=== PATIENT | male | born 1955 | race Caucasian/White ===

== ENCOUNTER 2018-03-28 10:07 | Inpatient (IN) ==
[2018-03-28 11:32] LABS: Basophils # 0.1 10*3/uL (0.0-0.2); Basophils % 1.3 % (0.0-0.8); Eosinophils # 0.2 10*3/uL (0.0-0.87); Eosinophils % 2.6 % (0.00-10.9); Hematocrit 41.4 VOL% (42.0-52.0); Hemoglobin 14.1 GM/DL (14.0-18.0); Immature Granulocytes % 0.3 %; Immature Granulocytes Absolute 0.02 #; Lymphocytes # 1.8 10*3/uL (1.4-4.0); Lymphocytes % 26.5 % (21.2-54.2); Mean Corpuscular HGB Conc 34.1 GM/DL (32-36); Mean Corpuscular Hemoglobin 33 PG (27-34); Mean Corpuscular Volume 97.6 FL (87-102); Mean Platelet Volume 9.6 FL (9.6-12.0); Monocytes # 0.7 10*3/uL (0.11-0.8); Monocytes % 10.6 % (1.7-12.7); Neutrophils % 58.7 % (38.7-73.9); Platelet Count 177 T/CUMM (130-400); Red Blood Count 4.24 MC/CUMM (3.8-5.5); White Blood Count 6.9 T/CUMM (4-12)
[2018-03-28 11:49] LABS: Albumin 3.5 G/DL (3.4-5.0); Bilirubin,Total 0.5 MG/DL (0.2-1.0); Calcium 9.8 MG/DL (8.5-10.1); Osmolality,Calculated 281.7 MOS/KG (273-304); Potassium 4.8 MMOL/L (3.5-5.1); Total Protein 7.4 G/DL (6.4-8.3)
[2018-03-28] MEDS ORDERED: VANCOMYCIN INJ 1,500 MG in SODIUM CHLORIDE 0.9% 500 ML IV ONE (12:00)
[2018-03-28] MEDS ORDERED: ACETAMINOPHEN 325 MG TABLET PO PRN (13:10)
[2018-03-28] MEDS ORDERED: ONDANSETRON 4 MG/2 ML VIAL IV PRN (13:10)
[2018-03-28] MEDS ORDERED: GLUCAGON 1 MG VIAL IM PRN (15:56)
[2018-03-28] MEDS ORDERED: DEXTROSE 50% 25 GM/50 ML VIAL IV PRN (15:56)
[2018-03-28] MEDS: INSULIN LISPRO 100 UNIT/ML SUBCUT SCH ×2 (17:11→21:44)
[2018-03-28 19:35] LABS: INR 1.4; PT Patient Result 14.2 SECS
[2018-03-28] MEDS ORDERED: WARFARIN 5 MG TABLET PO SCH (21:00)
[2018-03-28] MEDS: SIMVASTATIN 80 MG TABLET PO SCH (21:43)
[2018-03-29] MEDS: VANCOMYCIN INJ 1,500 MG in SODIUM CHLORIDE 0.9% 500 ML IV SCH ×2 (01:02→14:10)
[2018-03-29 06:03] LABS: Calcium 9.6 MG/DL (8.5-10.1); Osmolality,Calculated 282.3 MOS/KG (273-304); Potassium 3.9 MMOL/L (3.5-5.1)
[2018-03-29] MEDS: INSULIN LISPRO 100 UNIT/ML SUBCUT SCH ×4 (09:00→20:43)
[2018-03-29] MEDS: PANTOPRAZOLE 40 MG TABLET PO SCH (10:24)
[2018-03-29] MEDS ORDERED: MAGNESIUM SULF RIDER 2 GM in PREMIX 1 EACH IV PRN (12:30)
[2018-03-29] MEDS ORDERED: MAGNESIUM SULF RIDER 4 GM in PREMIX 1 EACH IV PRN (12:30)
[2018-03-29] MEDS: LISINOPRIL/HCTZ 20-25 MG TABLET PO SCH (16:33)
[2018-03-29] MEDS: PENTOXIFYLLINE 400 MG TABLET PO SCH ×2 (16:33→20:42)
[2018-03-29] MEDS ORDERED: WARFARIN 7.5 MG TABLET PO SCH (18:00)
[2018-03-29] MEDS: SIMVASTATIN 80 MG TABLET PO SCH (20:42)
[2018-03-29] MEDS ORDERED: INSULIN NPH/REGULAR 70/30 100 UNIT/ML SUBCUT SCH (21:00)
[2018-03-30] MEDS: VANCOMYCIN INJ 1,500 MG in SODIUM CHLORIDE 0.9% 500 ML IV SCH (01:14)
[2018-03-30 05:17] LABS: INR 1.4; PT Patient Result 14.1 SECS
[2018-03-30 05:52] LABS: Calcium 8.5 MG/DL (8.5-10.1); Osmolality,Calculated 281.3 MOS/KG (273-304); Potassium 3.8 MMOL/L (3.5-5.1)
[2018-03-30] MEDS: INSULIN LISPRO 100 UNIT/ML SUBCUT SCH ×2 (08:09→12:30)
[2018-03-30] MEDS ORDERED: LISINOPRIL/HCTZ 20-25 MG TABLET PO SCH (09:00)
[2018-03-30] MEDS ORDERED: INSULIN NPH/REGULAR 70/30 100 UNIT/ML SUBCUT SCH (09:00)
[2018-03-30] MEDS: PANTOPRAZOLE 40 MG TABLET PO SCH (09:29)
[2018-03-30] MEDS: PENTOXIFYLLINE 400 MG TABLET PO SCH (09:29)
[2018-03-30] MEDS: LISINOPRIL/HCTZ 20-25 MG TABLET PO SCH (09:29)
[2018-03-30 12:56] VITALS: BP 164/74
== END 2018-03-30 14:39 | disposition home or self-care (01) | DRG 603 ==
LOC: N.3E 10:28
PROVIDERS: ADMIT Surgery; ATTEND Surgery

== ENCOUNTER 2020-12-19 18:30 | Inpatient (IN) ==
[2020-12-19] MEDS ORDERED: DEXAMETHASONE 4 MG/1 ML VIAL IM STA (18:59)
[2020-12-19] MEDS ORDERED: ONDANSETRON 4 MG/2 ML VIAL IV STA ×2 (18:59→22:27)
[2020-12-19 19:52] LABS: Basophils % 0.1 % (0.0-0.8); Hematocrit 40.6 VOL% (42.0-52.0); Hemoglobin 14.2 GM/DL (14.0-18.0); Lymphocytes # 0.5 10*3/uL (1.4-4.0); Lymphocytes % 4.7 % (21.2-54.2); Mean Platelet Volume 10.3 FL (9.6-12.0); Monocytes % 2.6 % (1.7-12.7); Neutrophils % 91.6 % (38.7-73.9); Platelet Count 152 T/CUMM (130-400); Red Blood Count 4.32 MC/CUMM (3.8-5.5); Red Cell Distribution Width 12.8 % (9.3-17.3); White Blood Count 9.8 T/CUMM (4-12)
[2020-12-19 20:05] LABS: PT Patient Result 11.7 SECS (10.5-12.0)
[2020-12-19 20:15] LABS: Band Neutrophils 2 % (0-10); Lymphocytes 4 % (20-55); Platelet Estimate Normal; Segmented Neutrophils 89 % (50-85); Total Cells Counted 100
[2020-12-19 20:27] LABS: Albumin 2.6 G/DL (3.4-5.0); Bilirubin,Total 0.6 MG/DL (0.20-1.00); Calcium 8.3 MG/DL (8.5-10.1); Osmolality,Calculated 263.6 MOS/KG (273-304); Potassium 4.9 MMOL/L (3.5-5.1); Total Protein 7.4 G/DL (6.4-8.2)
[2020-12-19] MEDS ORDERED: MAGNESIUM SULF RIDER 2 GM/50 ML PREMIX IV STA (21:46)
[2020-12-19] MEDS ORDERED: ENOXAPARIN 100 MG/ML SYRINGE SUBCUT STA (21:59)
[2020-12-19] MEDS ORDERED: MORPHINE 2 MG/1 ML SYRINGE IV STA (22:27)
[2020-12-19] MEDS ORDERED: guaiFENesin/DM ER 600-30 MG TABLET PO PRN (22:50)
[2020-12-19] MEDS ORDERED: PROMETHAZINE 25 MG TABLET PO PRN (22:50)
[2020-12-19] MEDS ORDERED: NICOTINE 21 MG/24 HR PATCH TRANSDERM PRN (22:50)
[2020-12-19] MEDS ORDERED: ACETAMINOPHEN 325 MG TABLET PO PRN (22:50)
[2020-12-19] MEDS ORDERED: diphenhydrAMINE CAP 25 MG CAPSULE PO PRN (22:50)
[2020-12-19] MEDS ORDERED: MORPHINE 2 MG/1 ML SYRINGE IV PRN (22:50)
[2020-12-19] MEDS ORDERED: ONDANSETRON 4 MG/2 ML VIAL IV PRN (22:50)
[2020-12-19] MEDS ORDERED: DEXTROSE 50% 25 GM/50 ML VIAL IV PRN ×2 (22:50)
[2020-12-19] MEDS ORDERED: GLUCAGON 1 MG VIAL IM PRN ×2 (22:50)
[2020-12-20] MEDS ORDERED: ALBUTEROL INHALER 18 GM INH PRN (01:42)
[2020-12-20] MEDS: SODIUM CHLORIDE 0.9% 1,000 ML IV SCH ×2 (03:40→19:18)
[2020-12-20] MEDS: cefTRIAXone 1,000 MG in SODIUM CHLORIDE 0.9% 100 ML IV SCH (03:40)
[2020-12-20] MEDS: AZITHROMYCIN INJ 500 MG in SODIUM CHLORIDE 0.9% 250 ML IV SCH (04:20)
[2020-12-20 05:11] LABS: Basophils % 0.1 % (0.0-0.8); Hematocrit 37.6 VOL% (42.0-52.0); Hemoglobin 13.2 GM/DL (14.0-18.0); Immature Granulocytes % 1.1 %; Immature Granulocytes Absolute 0.13 #; Lymphocytes # 0.6 10*3/uL (1.4-4.0); Lymphocytes % 4.8 % (21.2-54.2); Mean Corpuscular HGB Conc 35.1 GM/DL (32-36); Mean Corpuscular Volume 94.7 FL (87-102); Mean Platelet Volume 9.8 FL (9.6-12.0); Monocytes % 2.4 % (1.7-12.7); Neutrophils % 91.6 % (38.7-73.9); Platelet Count 153 T/CUMM (130-400); Red Blood Count 3.97 MC/CUMM (3.8-5.5); Red Cell Distribution Width 12.7 % (9.3-17.3); White Blood Count 12.1 T/CUMM (4-12)
[2020-12-20 05:39] LABS: Calcium 8.4 MG/DL (8.5-10.1); Osmolality,Calculated 272.2 MOS/KG (273-304)
[2020-12-20 05:40] LABS: Lymphocytes 1 % (20-55); Platelet Estimate Adequate; Segmented Neutrophils 97 % (50-85); Total Cells Counted 100
[2020-12-20 05:43] LABS: Ferritin 1082.5 ng/ml (26-388)
[2020-12-20] MEDS: INSULIN LISPRO 100 UNIT/ML SUBCUT SCH ×4 (10:39→21:23)
[2020-12-20] MEDS: FAMOTIDINE 20 MG TABLET PO SCH ×2 (10:39→21:25)
[2020-12-20] MEDS: ALBUTEROL INHALER 18 GM INH SCH ×5 (10:39→23:21)
[2020-12-20] MEDS: PANTOPRAZOLE 40 MG TABLET PO SCH (10:40)
[2020-12-20] MEDS: ZINC GLUCONATE 50 MG TABLET PO SCH (10:41)
[2020-12-20] MEDS: CHOLECALCIFEROL 1,000 UNIT TABLET PO SCH (10:41)
[2020-12-20] MEDS: ASCORBIC ACID 500 MG TABLET PO SCH ×2 (10:41→21:25)
[2020-12-20] MEDS: DEXAMETHASONE 4 MG/1 ML VIAL IV SCH (10:43)
[2020-12-20 12:46] LABS: Bilirubin,Urine Negative (Negative); Blood, Urine Moderate mg/dL (Negative); Calcium Oxalate Crystals,Urine Occasional /HPF (Few); Glucose,Urine (UA) 50 mg/dL (Negative); Ketones,Urine Negative (Negative); Nitrite,Urine Negative (Negative); Protein,Urine >=500 MG/DL; RBC,Urine 6 /HPF (0-4); Squamous Epithelial Cell,Urine Occasional /HPF (0-10); Urine Appearance CLOUDY (Clear); Urine Color Yellow (Yellow); Urine Specific Gravity 1.014 (1.001-1.035); Urine Urobilinogen < 2.0 EU/DL (0.2-1.0)
[2020-12-20] MEDS: ENOXAPARIN 100 MG/ML SYRINGE SUBCUT SCH (21:24)
[2020-12-20] MEDS: ZALEPLON 5 MG CAPSULE PO PRN (23:21)
[2020-12-21] MEDS: cefTRIAXone 1,000 MG in SODIUM CHLORIDE 0.9% 100 ML IV SCH (02:08)
[2020-12-21] MEDS: AZITHROMYCIN INJ 500 MG in SODIUM CHLORIDE 0.9% 250 ML IV SCH (03:47)
[2020-12-21] MEDS: ALBUTEROL INHALER 18 GM INH SCH ×5 (03:47→18:07)
[2020-12-21 04:05] LABS: Basophils % 0.1 % (0.0-0.8); Hematocrit 41.6 VOL% (42.0-52.0); Hemoglobin 14.3 GM/DL (14.0-18.0); Immature Granulocytes % 0.7 %; Immature Granulocytes Absolute 0.09 #; Lymphocytes # 0.6 10*3/uL (1.4-4.0); Lymphocytes % 4.9 % (21.2-54.2); Mean Corpuscular HGB Conc 34.4 GM/DL (32-36); Mean Corpuscular Volume 95.6 FL (87-102); Mean Platelet Volume 9.6 FL (9.6-12.0); Monocytes % 2.9 % (1.7-12.7); Neutrophils % 91.4 % (38.7-73.9); Platelet Count 164 T/CUMM (130-400); Red Blood Count 4.35 MC/CUMM (3.8-5.5); Red Cell Distribution Width 12.9 % (9.3-17.3); White Blood Count 12.6 T/CUMM (4-12)
[2020-12-21] MEDS: SODIUM CHLORIDE 0.9% 1,000 ML IV SCH ×2 (04:19→17:35)
[2020-12-21 04:31] LABS: Calcium 8.5 MG/DL (8.5-10.1); Osmolality,Calculated 275.2 MOS/KG (273-304); Potassium 4.4 MMOL/L (3.5-5.1)
[2020-12-21 04:32] LABS: Band Neutrophils 2 % (0-10); Lymphocytes 1 % (20-55); Segmented Neutrophils 96 % (50-85); Total Cells Counted 100
[2020-12-21 04:33] LABS: Microcytosis 1+
[2020-12-21 04:34] LABS: Platelet Estimate Adequate
[2020-12-21 04:37] LABS: INR 1.1; PT Patient Result 12.6 SECS (10.5-12.0)
[2020-12-21 04:40] LABS: Ferritin 1691.2 ng/ml (26-388)
[2020-12-21] MEDS: ISOSORBIDE MONONITRATE 60 MG TABLET PO SCH (08:48)
[2020-12-21] MEDS: CHOLECALCIFEROL 1,000 UNIT TABLET PO SCH (08:48)
[2020-12-21] MEDS: ASCORBIC ACID 500 MG TABLET PO SCH ×2 (08:48→21:53)
[2020-12-21] MEDS: FAMOTIDINE 20 MG TABLET PO SCH ×2 (08:48→21:53)
[2020-12-21] MEDS: PANTOPRAZOLE 40 MG TABLET PO SCH (08:48)
[2020-12-21] MEDS: ZINC GLUCONATE 50 MG TABLET PO SCH (08:48)
[2020-12-21] MEDS: MONTELUKAST 10 MG TABLET PO SCH (08:48)
[2020-12-21] MEDS: INSULIN LISPRO 100 UNIT/ML SUBCUT SCH ×4 (08:49→21:53)
[2020-12-21] MEDS: DEXAMETHASONE 4 MG/1 ML VIAL IV SCH (08:49)
[2020-12-21] MEDS: PENTOXIFYLLINE 400 MG TABLET PO SCH ×2 (11:33→16:13)
[2020-12-21] MEDS: ENOXAPARIN 100 MG/ML SYRINGE SUBCUT SCH (21:53)
[2020-12-22] MEDS: ALBUTEROL INHALER 18 GM INH SCH ×7 (00:36→23:05)
[2020-12-22] MEDS: ZALEPLON 5 MG CAPSULE PO PRN (00:36)
[2020-12-22] MEDS: cefTRIAXone 1,000 MG in SODIUM CHLORIDE 0.9% 100 ML IV SCH (02:00)
[2020-12-22] MEDS: AZITHROMYCIN INJ 500 MG in SODIUM CHLORIDE 0.9% 250 ML IV SCH (03:59)
[2020-12-22 04:54] LABS: Basophils % 0.1 % (0.0-0.8); Hematocrit 39.5 VOL% (42.0-52.0); Hemoglobin 13.9 GM/DL (14.0-18.0); Immature Granulocytes Absolute 0.12 #; Lymphocytes # 0.5 10*3/uL (1.4-4.0); Lymphocytes % 4.2 % (21.2-54.2); Mean Corpuscular HGB Conc 35.2 GM/DL (32-36); Mean Corpuscular Volume 96.3 FL (87-102); Mean Platelet Volume 9.9 FL (9.6-12.0); Monocytes % 3.9 % (1.7-12.7); Neutrophils % 90.8 % (38.7-73.9); Platelet Count 183 T/CUMM (130-400); Red Cell Distribution Width 13.2 % (9.3-17.3)
[2020-12-22 05:17] LABS: Calcium 8.2 MG/DL (8.5-10.1); Osmolality,Calculated 281.8 MOS/KG (273-304); Potassium 4.3 MMOL/L (3.5-5.1)
[2020-12-22 05:18] LABS: Band Neutrophils 1 % (0-10); Platelet Estimate Normal; Segmented Neutrophils 98 % (50-85); Total Cells Counted 100
[2020-12-22 05:32] LABS: Ferritin 2573.8 ng/ml (26-388)
[2020-12-22] MEDS: SODIUM CHLORIDE 0.9% 1,000 ML IV SCH ×2 (06:45→13:25)
[2020-12-22] MEDS: ZINC GLUCONATE 50 MG TABLET PO SCH (08:26)
[2020-12-22] MEDS: MONTELUKAST 10 MG TABLET PO SCH (08:26)
[2020-12-22] MEDS: CHOLECALCIFEROL 1,000 UNIT TABLET PO SCH (08:26)
[2020-12-22] MEDS: PANTOPRAZOLE 40 MG TABLET PO SCH (08:26)
[2020-12-22] MEDS: PENTOXIFYLLINE 400 MG TABLET PO SCH ×3 (08:26→16:29)
[2020-12-22] MEDS: ASCORBIC ACID 500 MG TABLET PO SCH ×2 (08:26→21:02)
[2020-12-22] MEDS: ISOSORBIDE MONONITRATE 60 MG TABLET PO SCH (08:26)
[2020-12-22] MEDS: FAMOTIDINE 20 MG TABLET PO SCH ×2 (08:26→21:02)
[2020-12-22] MEDS: DEXAMETHASONE 4 MG/1 ML VIAL IV SCH (08:45)
[2020-12-22] MEDS: INSULIN LISPRO 100 UNIT/ML SUBCUT SCH ×4 (09:00→21:03)
[2020-12-22] MEDS: hydrALAZINE 25 MG TABLET PO SCH ×3 (13:25→21:02)
[2020-12-22] MEDS: ENOXAPARIN 100 MG/ML SYRINGE SUBCUT SCH (21:03)
[2020-12-23] MEDS: hydrALAZINE 20 MG/1 ML VIAL IV PRN (01:00)
[2020-12-23] MEDS: cefTRIAXone 1,000 MG in SODIUM CHLORIDE 0.9% 100 ML IV SCH (01:11)
[2020-12-23] MEDS: ALBUTEROL INHALER 18 GM INH SCH ×6 (03:24→22:54)
[2020-12-23] MEDS: AZITHROMYCIN INJ 500 MG in SODIUM CHLORIDE 0.9% 250 ML IV SCH (03:24)
[2020-12-23] MEDS: SODIUM CHLORIDE 0.9% 1,000 ML IV SCH ×2 (04:49→22:51)
[2020-12-23 05:37] LABS: Basophils % 0.2 % (0.0-0.8); Hematocrit 41.6 VOL% (42.0-52.0); Hemoglobin 14.4 GM/DL (14.0-18.0); Immature Granulocytes % 2.9 %; Immature Granulocytes Absolute 0.32 #; Lymphocytes # 0.7 10*3/uL (1.4-4.0); Lymphocytes % 6.3 % (21.2-54.2); Mean Corpuscular HGB Conc 34.6 GM/DL (32-36); Mean Corpuscular Volume 95.9 FL (87-102); Mean Platelet Volume 9.8 FL (9.6-12.0); Monocytes % 4.9 % (1.7-12.7); Neutrophils % 85.7 % (38.7-73.9); Platelet Count 207 T/CUMM (130-400); Red Blood Count 4.34 MC/CUMM (3.8-5.5); Red Cell Distribution Width 13.2 % (9.3-17.3); White Blood Count 11.2 T/CUMM (4-12)
[2020-12-23 06:02] LABS: Calcium 8.4 MG/DL (8.5-10.1); Osmolality,Calculated 287.4 MOS/KG (273-304); Potassium 4.4 MMOL/L (3.5-5.1)
[2020-12-23 06:04] LABS: Lymphocytes 3 % (20-55); Segmented Neutrophils 94 % (50-85); Total Cells Counted 100
[2020-12-23 06:05] LABS: Microcytosis 1+
[2020-12-23 06:06] LABS: Hypochromasia 1+; Platelet Estimate Normal
[2020-12-23 06:18] LABS: Ferritin 3695.6 ng/ml (26-388)
[2020-12-23] MEDS: DEXAMETHASONE 4 MG/1 ML VIAL IV SCH (08:15)
[2020-12-23] MEDS: CHOLECALCIFEROL 1,000 UNIT TABLET PO SCH (08:16)
[2020-12-23] MEDS: PENTOXIFYLLINE 400 MG TABLET PO SCH ×3 (08:16→17:31)
[2020-12-23] MEDS: ASCORBIC ACID 500 MG TABLET PO SCH ×2 (08:16→22:33)
[2020-12-23] MEDS: hydrALAZINE 25 MG TABLET PO SCH ×3 (08:16→22:33)
[2020-12-23] MEDS: ZINC GLUCONATE 50 MG TABLET PO SCH (08:16)
[2020-12-23] MEDS: PANTOPRAZOLE 40 MG TABLET PO SCH (08:16)
[2020-12-23] MEDS: FAMOTIDINE 20 MG TABLET PO SCH ×2 (08:17→22:33)
[2020-12-23] MEDS: ISOSORBIDE MONONITRATE 60 MG TABLET PO SCH (08:17)
[2020-12-23] MEDS: MONTELUKAST 10 MG TABLET PO SCH (08:17)
[2020-12-23] MEDS: INSULIN LISPRO 100 UNIT/ML SUBCUT SCH ×4 (10:16→22:32)
[2020-12-23] MEDS ORDERED: MELATONIN 3 MG TABLET PO PRN (11:59)
[2020-12-23] MEDS ORDERED: ceFAZolin 2,000 MG in SODIUM CHLORIDE 0.9% 100 ML IV SCH (12:00)
[2020-12-23] MEDS: ceFAZolin 2,000 MG/50 ML DUPLEX IV SCH ×2 (12:10→22:51)
[2020-12-23] MEDS: ENOXAPARIN 100 MG/ML SYRINGE SUBCUT SCH (12:12)
[2020-12-23] MEDS: INSULIN ASPART PROTAMINE/ASPART 70/30 100 UNIT/ML SUBCUT SCH (22:44)
[2020-12-24] MEDS: ENOXAPARIN 100 MG/ML SYRINGE SUBCUT SCH ×3 (01:34→23:18)
[2020-12-24 02:23] LABS: ABG Base Excess -2.7 MMOL/L (-2.5-2.5); ABG Oxygen Saturation 89.2 % (95-100); ABG PCO2 32.6 MM HG (35-48); ABG PH 7.415 (7.35-7.45); ABG PO2 59.5 MM HG (80-95)
[2020-12-24] MEDS: ALBUTEROL INHALER 18 GM INH SCH ×6 (03:28→23:17)
[2020-12-24] MEDS ORDERED: AZITHROMYCIN INJ 500 MG in SODIUM CHLORIDE 0.9% 250 ML IV SCH (03:30)
[2020-12-24] MEDS: AZITHROMYCIN INJ 500 MG in SODIUM CHLORIDE 0.9% 250 ML IV SCH (04:21)
[2020-12-24 06:26] LABS: Basophils % 0.2 % (0.0-0.8); Hematocrit 40.1 VOL% (42.0-52.0); Hemoglobin 13.7 GM/DL (14.0-18.0); Immature Granulocytes % 4.5 %; Immature Granulocytes Absolute 0.45 #; Lymphocytes # 0.8 10*3/uL (1.4-4.0); Lymphocytes % 8.1 % (21.2-54.2); Mean Corpuscular HGB Conc 34.2 GM/DL (32-36); Mean Corpuscular Volume 95.9 FL (87-102); Mean Platelet Volume 10.2 FL (9.6-12.0); Monocytes % 4.8 % (1.7-12.7); Neutrophils % 82.4 % (38.7-73.9); Platelet Count 221 T/CUMM (130-400); Red Blood Count 4.18 MC/CUMM (3.8-5.5); Red Cell Distribution Width 13.7 % (9.3-17.3)
[2020-12-24 06:48] LABS: Calcium 8.1 MG/DL (8.5-10.1); Osmolality,Calculated 295.1 MOS/KG (273-304); Potassium 4.6 MMOL/L (3.5-5.1)
[2020-12-24 06:51] LABS: Lymphocytes 6 % (20-55); Platelet Estimate Adequate; Segmented Neutrophils 90 % (50-85); Total Cells Counted 100
[2020-12-24 07:01] LABS: Ferritin 3698.8 ng/ml (26-388)
[2020-12-24] MEDS: SODIUM CHLORIDE 0.9% 1,000 ML IV SCH (07:32)
[2020-12-24] MEDS: ASCORBIC ACID 500 MG TABLET PO SCH ×2 (09:02→20:34)
[2020-12-24] MEDS: PENTOXIFYLLINE 400 MG TABLET PO SCH ×3 (09:03→17:24)
[2020-12-24] MEDS: hydrALAZINE 25 MG TABLET PO SCH ×3 (09:03→20:34)
[2020-12-24] MEDS: MONTELUKAST 10 MG TABLET PO SCH (09:03)
[2020-12-24] MEDS: CHOLECALCIFEROL 1,000 UNIT TABLET PO SCH (09:03)
[2020-12-24] MEDS: INSULIN LISPRO 100 UNIT/ML SUBCUT SCH ×4 (09:04→20:58)
[2020-12-24] MEDS: DEXAMETHASONE 4 MG/1 ML VIAL IV SCH (09:05)
[2020-12-24] MEDS: ceFAZolin 2,000 MG/50 ML DUPLEX IV SCH ×3 (09:05→23:17)
[2020-12-24] MEDS ORDERED: FUROSEMIDE 40 MG/4 ML VIAL IV ONE (10:02)
[2020-12-24] MEDS: INSULIN ASPART PROTAMINE/ASPART 70/30 100 UNIT/ML SUBCUT SCH ×2 (10:19→18:20)
[2020-12-24] MEDS: ZINC GLUCONATE 50 MG TABLET PO SCH (11:34)
[2020-12-24] MEDS: FAMOTIDINE 20 MG TABLET PO SCH ×2 (11:34→20:34)
[2020-12-24] MEDS: ISOSORBIDE MONONITRATE 60 MG TABLET PO SCH (11:35)
[2020-12-24] MEDS: INSULIN GLARGINE 100 UNIT/ML SUBCUT SCH (12:51)
[2020-12-24] MEDS: hydrALAZINE 20 MG/1 ML VIAL IV PRN (23:18)
[2020-12-25] MEDS: ALBUTEROL INHALER 18 GM INH SCH ×3 (02:33→15:20)
[2020-12-25] MEDS: hydrALAZINE 20 MG/1 ML VIAL IV PRN (05:26)
[2020-12-25] MEDS: ceFAZolin 2,000 MG/50 ML DUPLEX IV SCH (06:05)
[2020-12-25 06:54] LABS: Basophils # 0.1 10*3/uL (0.0-0.2); Basophils % 0.5 % (0.0-0.8); Hematocrit 41.8 VOL% (42.0-52.0); Hemoglobin 14.2 GM/DL (14.0-18.0); Immature Granulocytes % 5.6 %; Immature Granulocytes Absolute 0.56 #; Lymphocytes % 9.7 % (21.2-54.2); Mean Corpuscular Volume 96.8 FL (87-102); Monocytes % 3.7 % (1.7-12.7); NRBC # 0.02 10*3/uL; Neutrophils % 80.5 % (38.7-73.9); Platelet Count 190 T/CUMM (130-400); Red Blood Count 4.32 MC/CUMM (3.8-5.5); Red Cell Distribution Width 13.9 % (9.3-17.3); White Blood Count 10.1 T/CUMM (4-12)
[2020-12-25 07:17] LABS: Eosinophils 1 % (0-10); Lymphocytes 3 % (20-55); Nucleated Red Blood Cells 1 (0-5); Platelet Estimate Adequate; Segmented Neutrophils 90 % (50-85); Total Cells Counted 100
[2020-12-25 07:21] LABS: Calcium 8.6 MG/DL (8.5-10.1); Osmolality,Calculated 299.8 MOS/KG (273-304); Potassium 4.5 MMOL/L (3.5-5.1)
[2020-12-25 07:35] LABS: Ferritin 1983.4 ng/ml (26-388)
[2020-12-25] MEDS ORDERED: FUROSEMIDE 40 MG/4 ML VIAL IV ONE (09:16)
[2020-12-25] MEDS ORDERED: DEXAMETHASONE 4 MG/1 ML VIAL IV SCH (09:30)
[2020-12-25 13:46] VITALS: BP 164/79
[2020-12-25] MEDS: INSULIN LISPRO 100 UNIT/ML SUBCUT SCH (15:16)
[2020-12-25] MEDS: PENTOXIFYLLINE 400 MG TABLET PO SCH (15:17)
[2020-12-25] MEDS: hydrALAZINE 25 MG TABLET PO SCH (15:18)
[2020-12-25] MEDS: INSULIN GLARGINE 100 UNIT/ML SUBCUT SCH (15:18)
[2020-12-25] MEDS: ISOSORBIDE MONONITRATE 60 MG TABLET PO SCH (15:18)
[2020-12-25] MEDS: MONTELUKAST 10 MG TABLET PO SCH (15:19)
[2020-12-25] MEDS: ZINC GLUCONATE 50 MG TABLET PO SCH (15:19)
[2020-12-25] MEDS: CHOLECALCIFEROL 1,000 UNIT TABLET PO SCH (15:19)
[2020-12-25] MEDS: FAMOTIDINE 20 MG TABLET PO SCH (15:19)
[2020-12-25] MEDS: ASCORBIC ACID 500 MG TABLET PO SCH (15:19)
[2020-12-25] MEDS: INSULIN ASPART PROTAMINE/ASPART 70/30 100 UNIT/ML SUBCUT SCH (16:29)
[2020-12-25] MEDS: DEXAMETHASONE 4 MG/1 ML VIAL IV SCH (16:30)
== END 2020-12-25 09:00 | disposition expired | DRG 177 ==
LOC: EDUNIT# → EDBD → N.ED 18:30 → SUATTDRO 22:50 → N.EDINP 22:50 → N.2E 12-20 03:08
PROVIDERS: ADMIT Internal Medicine; ATTEND Internal Medicine